=== PATIENT | female | born 1960 | race Caucasian/White ===

== ENCOUNTER 2016-11-12 21:02 | Inpatient (IN) | payer OTHER ==
--- NOTE | ~2016-11-12 | HP ---
Unit #: [id number] #: [id number] Patient: PATRICIO HURD [id number] [address] [place], [place] [address] [id number] MR#: [id number] NAME: PATRICIO HURD. ROOM: 317 Age: 55 Sex: F Admission Date: 11/13/2016 : 1960 Attending Physician: Jie Pelletier M.D. Primary Care Physician: Del Simpson M.D. HISTORY AND PHYSICAL HISTORY OF PRESENT ILLNESS This is a 55-year-old white female with history of multiple sclerosis, hypertension, chronic back pain, nicotine abuse, who came to the emergency room with chest pain. According to the patient, she woke up yesterday morning without any chest pain and then through the morning she started having mid sternal pain that radiated once up to the left side of her neck. She said it was waxing and waning throughout the morning and in the afternoon she had some slight shortness of breath and some nausea. She denied any fever or chills. Has occasional cough. She had no diaphoresis, palpitations or dizziness. She says for two or three days she has been just feeling real fatigued without any specific associated symptoms. In the emergency room, the patient's blood pressure was 155/96, heart rate 94, respirations 18, temperature 98.6, O2 saturation was 100% on room air. Her initial cardiac enzymes troponin was less than 0.05 and later was 0.30 with the %MB 4.4. Her EKG shows normal sinus rhythm with left atrial enlargement. Left axis deviation. Nothing acute. Patient was given aspirin 325 and nitroglycerin paste. The patient has been admitted for further evaluation and management. According to the patient, in the she had a heart catheterization after she was being worked up for some type of chest pain and, according to the patient, was normal. PAST MEDICAL HISTORY 1. History of multiple sclerosis. Follows at [facility]. 2. Hypertension. 3. Chronic back pain. 4. Nicotine abuse. 5. Cardiac catheterization back in the , told it was normal. PAST SURGICAL HISTORY 1. Back surgery x3. 2. Bilateral knee scopes. 3. Bladder repair. 4. Two breast biopsies which were benign. 5. D and C. 6. Tonsillectomy. HOME MEDICATIONS 1. Lasix, dosage unavailable, daily. 2. Baclofen 20 mg p.o. q.i.d. 3. Trazodone 150 mg p.o. h.s. Unit #: [id number] #: [id number] Patient: PATRICIO HURD ALLERGIES Sulfonamides. SOCIAL HISTORY The patient lives with her daughter. She is trying to get disability for her multiple sclerosis. She is fairly inactive. She smokes about one-half pack per day, has been smoking about 15 years. No alcohol or illicit drug abuse. FAMILY HISTORY Mother from brain cancer. Father from complications of COPD but he had a defibrillator and at the age of 76. Her siblings are in general well health. REVIEW OF SYSTEMS CONSTITUTIONAL: Denies fever or chills. HEENT: No vision or hearing changes. No lymphadenopathy, thyromegaly, or difficulty swallowing. CARDIOVASCULAR: Chest pain present. Denies palpitations. Denies increased lower extremity edema. PULMONARY: Slight shortness of breath with the chest pain. Denies paroxysmal nocturnal dyspnea or orthopnea. GASTROINTESTINAL: Some nausea but denies vomiting, diarrhea, or abdominal pain. NEUROLOGIC: No focal weakness. PHYSICAL EXAMINATION VITAL SIGNS: Blood pressure 112/57. On admission, patient's blood pressure was 155/96. Respirations 16, heart rate 65, afebrile, O2 saturations 98% on room air. GENERAL: On exam, Ms. Hurd is a 55-year-old white female in no acute respiratory distress. She is awake, alert, and oriented. NECK: Trachea midline. No thyromegaly, lymphadenopathy. Normal carotid upstrokes. No jugular venous distention. HEART: S1, S2. Regular rate and rhythm. No clicks, murmurs, or rubs. LUNGS: Diminished with scattered wheezes in upper airways. ABDOMEN: Slightly obese, soft, nontender. Positive bowel sounds are present. No hepatosplenomegaly. EXTREMITIES: Pedal pulses are palpable. No pedal edema. DIAGNOSTIC STUDIES LABORATORY: Glucose 95, BUN 10, creatinine 0.6, EGFR 101.2, sodium 136, potassium 3.5, chloride 101, CO2 is 24, calcium 9.7, total protein 7.6, albumin 4.3, total bilirubin 0.3, AST 20, ALT 19, alkaline phosphatase 113. WBC 9.9, hemoglobin 14.4, hematocrit 44.8, platelets 387. Initial cardiac enzymes CKMB 1.7, troponin less than 0.05. Repeat cardiac enzymes CK total 61, MB 27, %MB 4.4, troponin 0.30. Repeat troponin this morning 0.27. INR 1.0. IMAGING: Chest x-ray preliminary report no active disease. CARDIOVASCULAR: EKG shows normal sinus rhythm with ventricular rate 87 beats per minute, left atrial abnormality, left axis deviation, poor R-wave progression. IMPRESSION 1. Chest pain, acute coronary syndrome. Unit #: [id number] #: [id number] Patient: PATRICIO HURD 2. Hypertension. 3. Probable chronic obstructive pulmonary disease, acute bronchitis. 4. Chronic back pain. 5. Multiple sclerosis. 6. Nicotine abuse. PLAN 1. Patient's cardiac enzymes and troponin are elevated along with the MB indicating acute coronary syndrome in addition to her symptoms. 2. Will schedule the patient for a heart catheterization for Tuesday. In the meantime, will treat her bronchitis with albuterol inhaler two puffs b.i.d. 3. Will obtain fasting lipid profile and TSH and evaluate. 4. In the meantime, will put her on Lipitor 80 mg p.o. daily and therapeutic doses of Lovenox 1 mg/kg subcu b.i.d. and add low-dose beta gloria metoprolol 25 mg p.o. b.i.d. 5. Patient will have a 2D echo to evaluate LV function and valves. 6. On exam, there is no signs or symptoms of acute congestive heart failure. Continue to monitor labs, especially BUN, creatinine and electrolytes. 7. Discussed with the patient the heart catheterization including the risks and benefits including risk of bleeding, myocardial infarction, stroke and even . Patient verbalizes understanding and agrees to proceed. 8. Encouraged patient to completely quit smoking. Smoking cessation information provided to patient. 9. Further recommendations pending further testing. Dictated by Niecy Wells A.P.R.N. for Gilda Ronquillo/taco TD: 11/13/2016 12:49 JOB #: [id number] HISTORY AND PHYSICAL Page 1 of 1 X Niecy Wells APRN X HISTORY AND PHYSICAL
--- NOTE | ~2016-11-12 | DS ---
Unit #: [id number] #: [id number] Patient: PATRICIO HERNANDEZ [id number] [address] [place], [place] [address] [id number] I MR#: [id number] NAME: PATRICIO HERNANDEZ. ROOM: 317 Age: 55 Sex: F Admission Date: 11/13/2016 : 1960 Discharge Date: 11/15/2016 Attending Physician: Jie Pelletier M.D. Primary Care Physician: Del Simpson M.D. DISCHARGE SUMMARY DISCHARGE DIAGNOSES 1. Suspected acute coronary syndrome with indeterminate troponin and chest pain. 2. Status post left cardiac catheterization on 11/15/2016, revealed normal coronaries. Normal ejection fraction. Medical management. 3. Two-dimensional echocardiogram with normal ejection fraction. Final operative report pending. 4. Hypertension. 5. Hyperlipidemia. 6. Multiple sclerosis. 7. Chronic back pain. 8. Active tobacco abuse. 9. Probable chronic obstructive pulmonary disease with acute bronchitis. DISCHARGE MEDICATIONS 1. Albuterol two puffs inhalation b.i.d. p.r.n. wheezing. 2. Trazodone 150 mg p.o. at bedtime. 3. Toprol tartrate 12.5 mg p.o. b.i.d. 4. Lipitor 40 mg p.o. at nighttime. 5. Aspirin 81 mg p.o. daily. 6. Baclofen 20 mg p.o. q.i.d. HOSPITAL COURSE This is a 55-year-old white female, new to our group, with a past medical history of hypertension, multiple sclerosis, chronic back pain and nicotine abuse. She came to the emergency department on 11/13/2016 with complaints of chest pain. Please see details in the history and physical. Associated symptoms included shortness of breath and some nausea. Initial troponin was negative, but subsequently peaked at 0.30. EKG revealed sinus rhythm with left atrial enlargement and a left axis deviation, but there were no acute findings. She was started on full-dose aspirin and topical nitrates. She was admitted for further evaluation and management. Her cardiac enzymes were trended. She ruled out for a myocardial infarction due to indeterminate levels. She was scheduled for a cardiac catheterization. During her hospital course she did have some wheezing and congestion. She was started on an albuterol inhaler and was advised to quit smoking. Fasting lipid profile and TSH levels were obtained. TSH level was normal. Lipid profile was mildly abnormal with an LDL at 113 and HDL 42. She was taken for cardiac catheterization on 11/15/[address] Espinal. Coronary angiography revealed normal coronaries. Ejection fraction was normal. Final operative report is pending, but there were no acute findings. The patient did well during the procedure and was transferred Unit #: [id number] #: [id number] Patient: PATRICIO HERNANDEZ to telemetry for further observation. Her right wrist was soft without hematoma. Labs were stable. Telemetry revealed no sustained arrhythmias. Once vascular checks are completed and she ambulates, she can be discharged home later today. She has been instructed to quit smoking and to follow up with her primary care provider due to suspected chronic bronchitis. She has been advised for spirometry testing and will likely need maintenance inhalers. For now she will be sent home with an albuterol inhaler as needed. She was started on a statin due to mild hyperlipidemia. She had some elevated blood pressure readings, with systolic being in the 150s to 160s. She was started on a low-dose beta gloria. She is stable and will be discharged home later today, as long as catheterization is stable. DIAGNOSTIC DATA LABORATORY: White blood cell count 8.3, hemoglobin 13.1, hematocrit 41.0, platelets 320, sodium 141, potassium 4.8, chloride 105, CO2 30, BUN 19, creatinine 0.7, glucose 94, AST 20, ALT 19, alkaline phosphatase 113. Peak troponin 0.3, 0.27, 0.26 and 0.27. Total cholesterol 185, triglycerides 151, LDL 113, HDL 42. TSH 1.25. CARDIOVASCULAR: Electrocardiogram revealed sinus bradycardia with a ventricular rate of 55 beats per minute. No acute ST or T wave changes. DISPOSITION The patient will be discharged home today after vascular checks. FOLLOWUP 1. She is instructed to follow up with primary care in one to two weeks. 2. Follow up with Dr. Pelletier on 01/18/2017 at 11:15 a.m. 3. The patient has been advised to follow for outpatient spirometry. She may need scheduled inhalers based on findings. DISCHARGE INSTRUCTIONS 1. Post catheterization instructions provided. 2. She has been advised to refrain from tobacco abuse. Dictated by... Faye B. Minor, WELLNESS NURSE RN for Gilda Zapien/michelle TD: 11/25/2016 09:52 JOB #: [id number] DISCHARGE SUMMARY Page 1 of 1 X X DISCHARGE SUMMARY
--- NOTE | ~2016-11-12 | EKG ---
PATIENT: PATRICIO HERNANDEZ UNIT #: [id number] Ventricular Rate: 55 BPM Atrial Rate: 55 BPM P-R Interval: 176 ms QRS Duration: 96 ms Q-T Interval: 444 ms QTC Calculation(Bezet): 424 ms P [place]: 78 degrees Calculated R [place]: -33 degrees Calculated T [place]: 24 degrees Diagnosis Line: Sinus bradycardia Diagnosis Line: Left axis deviation Diagnosis Line: Abnormal ECG Diagnosis Line: When compared with ECG of 13-NOV-2016 08:22, Diagnosis Line: No significant change was found Diagnosis Line: Confirmed by LISA ESCOBAR MD ([id number]) on Diagnosis Line: 11/14/2016 3:55:34 PM INTERPRETING MD: ANGELO
--- NOTE | ~2016-11-12 | EKG ---
PATIENT: PATRICIO HERNANDEZ UNIT #: [id number] Ventricular Rate: 87 BPM Atrial Rate: 87 BPM P-R Interval: 186 ms QRS Duration: 90 ms Q-T Interval: 376 ms QTC Calculation(Bezet): 452 ms P [place]: 65 degrees Calculated R [place]: -59 degrees Calculated T [place]: 43 degrees Diagnosis Line: Normal sinus rhythm Diagnosis Line: Left axis deviation Diagnosis Line: Pulmonary disease pattern Diagnosis Line: Abnormal ECG Diagnosis Line: No previous ECGs available Diagnosis Line: Confirmed by IRIS STANLEY MD ([id number]) on 11/16/2016 Diagnosis Line: 5:25:10 AM INTERPRETING MD: JADEN CRAIN
--- NOTE | ~2016-11-12 | EKG ---
PATIENT: PATRICIO HERNANDEZ UNIT #: [id number] Ventricular Rate: 64 BPM Atrial Rate: 64 BPM P-R Interval: 206 ms QRS Duration: 94 ms Q-T Interval: 412 ms QTC Calculation(Bezet): 425 ms P [place]: 72 degrees Calculated R [place]: -25 degrees Calculated T [place]: 31 degrees Diagnosis Line: Normal sinus rhythm Diagnosis Line: Normal ECG Diagnosis Line: No previous ECGs available Diagnosis Line: Confirmed by IRIS STANLEY MD ([id number]) on 11/14/2016 Diagnosis Line: 7:13:27 AM INTERPRETING MD: JADEN CRAIN
--- NOTE | ~2016-11-12 | EKG ---
PATIENT: PATRICIO HERNANDEZ UNIT #: [id number] Ventricular Rate: 55 BPM Atrial Rate: 55 BPM P-R Interval: 192 ms QRS Duration: 94 ms Q-T Interval: 426 ms QTC Calculation(Bezet): 407 ms P [place]: 70 degrees Calculated R [place]: -7 degrees Calculated T [place]: 45 degrees Diagnosis Line: Sinus bradycardia with sinus arrhythmia Diagnosis Line: Otherwise normal ECG Diagnosis Line: When compared with ECG of 14-NOV-2016 06:51, Diagnosis Line: No significant change was found Diagnosis Line: Confirmed by IRIS STANLEY MD ([id number]) on 11/16/2016 Diagnosis Line: 5:35:03 AM INTERPRETING MD: JADEN CRAIN
--- NOTE | ~2016-11-12 | CR72 ---
[facility] A Service of [facility] & [facility] RADIOLOGY TEXT RESULTS PATIENT: PATRICIO HERNANDEZ LOCATION: [facility] 317-01 : 56 UNIT #: [id number] AGE: [address]: Jie Pelletier MD SEX: F ORDER DR: [id number] [facility] [address] [facility]. [place], [place] [address] [id number] I MR#: [id number] Acc #: [id number] NAME: PATRICIO HERNANDEZ. : 1960 SEX: F STUDY DATE/TIME: 11/12/2016 19:04 UNIT: [address] ROOM: [facility] STUDY DESCRIPTION: CR Chest Single View Portable Attending Physician: Jie Pelletier M.D. Ordering Physician: Ed Denny Gautam M.D. Primary Care Physician: Del Simpson M.D. MEDICAL IMAGING REPORT This report is preliminary unless electronic signature is present EXAM AP portable chest, 11/12/2016. HISTORY 55-year-old female in the ED complaining of chest pain, cough and congestion beginning earlier today. TECHNIQUE AP portable upright chest x-ray. FINDINGS The examination is negative. Heart size and pulmonary vascularity are normal. The lungs are expanded and clear. No visible pulmonary infiltrate or pleural effusion. No change since 04/21/2011. IMPRESSION Negative chest. Dictated by... Arnoldo Perea M.D. THIS IS AN ELECTRONICALLY VERIFIED REPORT Arnoldo Perea M.D. at 11/15/2016 5:59 AM ANNA/selene TD: 11/13/2016 13:24 JOB #: [id number] MEDICAL IMAGING REPORT Page 1 of 1 COPY
[2016-11-12 19:25] LABS: BASOPHIL% 0.2 % (0-2.5); EOSINOPHIL# 0.3 X10e3 (0-0.7); EOSINOPHIL% 2.6 % (0.0-7.0); HEMATOCRIT 44.8 % (35.0-45.0); HEMOGLOBIN 14.4 gm/dL (12.0-16.0); LYMPHOCYTE# 3.1 X10e3 (1.0-3.5); LYMPHOCYTE% 31.7 % (17.0-45.0); MEAN CELL VOLUME 84.4 FL (83-96); MEAN CORPUSCULAR HEMOGLOBIN 27.2 PG (28-34); MEAN CORPUSCULAR HGB CONC 32.2 g/dL (30-36); MEAN PLATELET VOLUME 8.7 FL (6.5-11.5); MONOCYTE# 0.7 X10e3 (0-1.0); MONOCYTE% 7.2 % (3.0-12.0); NEUTROPHIL# 5.8 X10e3 (1.5-7.1); NEUTROPHIL% 58.3 % (40-75); PLATELET COUNT 387 X10e3 (140-420); RED BLOOD COUNT 5.31 X10e (3.90-5.30); RED CELL DISTRIBUTION WIDTH 14.5 % (11.0-15.5); WHITE BLOOD COUNT 9.9 X10e3 (4.0-10.5)
[2016-11-12 19:26] LABS: DIFF IND NO
[2016-11-12 19:35] LABS: PARTIAL THROMBOPLASTIN TIME 29.7 SECONDS (23.5-31.3)
[2016-11-12 19:48] LABS: ALBUMIN SERUM 4.3 g/dL (3.5-5.0); ALKALINE PHOSPHATASE 113 U/L (32-92); ALT (SGPT) 19 U/L (10-40); AST (SGOT) 20 U/L (10-42); BILIRUBIN,TOTAL 0.3 mg/dL (0.2-2.0); BLOOD UREA NITROGEN 10 mg/dL (9-23); BUN/CREATININE RATIO 16.66; CALCIUM SERUM 9.7 mg/dL (8.4-10.2); CARBON DIOXIDE 24 mmol/L (22-31); CHLORIDE 101 mmol/L (100-111); CREATININE SERUM 0.6 mg/dL (0.6-1.4); GLOM FILT RATE Estimated 101.2 mL/min (>60); GLUCOSE FASTING 95 mg/dL (70-110); POTASSIUM 3.5 mmol/L (3.5-5.1); PROTEIN TOTAL SERUM 7.6 g/dL (6.0-8.3); SODIUM 136 mmol/L (135-145)
[2016-11-12 19:52] LABS: BILIRUBIN, DIRECT <0.1 mg/dL (0.0-0.2); BILIRUBIN,INDIRECT 0.2 mg/dL (0.0-0.9)
[2016-11-12 20:35] LABS: POC - CKMB 1.7 ng/mL (0.0-7.9); POC - TROPONIN <0.05 ng/mL (<=0.05)
[~2016-11-12 21:02] MED LIST: LEVAQUIN250 MG PO; LEVAQUIN750 MG PO
[2016-11-12] MEDS ORDERED: LASIX PO (21:34)
[2016-11-12] MEDS ORDERED: TRAZODONE HCL150 MG PO (21:35)
[2016-11-12] MEDS ORDERED: BACLOFEN20 M1 PO (21:35)
[2016-11-12 22:03] LABS: CHOLESTEROL 234 mg/dL (0-200); HDL CHOLESTEROL 53 mg/dL (35-95); LDL/HDL RATIO 3 RATIO (0-4); TRIGLYCERIDES 235 mg/dL (10-160)
[2016-11-12 22:04] LABS: LDL CHOLESTEROL 134 mg/dL ([, -130])
[2016-11-12 22:52] LABS: %MB 4.4 % (0.0-4.0); MB 2.7 ng/ml
[2016-11-13 07:39] LABS: CK TOTAL 51 IU/L (26-140)
[2016-11-13 09:58] LABS: CHOLESTEROL 185 mg/dL (0-200); HDL CHOLESTEROL 42 mg/dL (35-95); LDL CHOLESTEROL 113 mg/dL ([, -130]); LDL/HDL RATIO 3 RATIO (0-4); TRIGLYCERIDES 151 mg/dL (10-160)
[2016-11-13 11:03] LABS: CK TOTAL 53 IU/L (26-140)
[2016-11-14 05:18] LABS: BASOPHIL# 0.1 X10e3 (0-0.3); BASOPHIL% 1.1 % (0-2.5); EOSINOPHIL# 0.3 X10e3 (0-0.7); HEMATOCRIT 42.9 % (35.0-45.0); HEMOGLOBIN 13.7 gm/dL (12.0-16.0); LYMPHOCYTE# 3.1 X10e3 (1.0-3.5); LYMPHOCYTE% 34.8 % (17.0-45.0); MEAN CELL VOLUME 84.9 FL (83-96); MEAN CORPUSCULAR HEMOGLOBIN 27.1 PG (28-34); MEAN CORPUSCULAR HGB CONC 31.9 g/dL (30-36); MEAN PLATELET VOLUME 8.6 FL (6.5-11.5); MONOCYTE# 0.9 X10e3 (0-1.0); MONOCYTE% 9.9 % (3.0-12.0); NEUTROPHIL# 4.4 X10e3 (1.5-7.1); NEUTROPHIL% 50.2 % (40-75); PLATELET COUNT 345 X10e3 (140-420); RED BLOOD COUNT 5.05 X10e (3.90-5.30); RED CELL DISTRIBUTION WIDTH 14.7 % (11.0-15.5); WHITE BLOOD COUNT 8.8 X10e3 (4.0-10.5)
[2016-11-14 05:24] LABS: DIFF IND NO
[2016-11-14 05:52] LABS: CREATININE SERUM 0.6 mg/dL (0.6-1.4); GLOM FILT RATE Estimated 101.2 mL/min (>60); POTASSIUM 4.4 mmol/L (3.5-5.1)
[2016-11-15 06:23] LABS: HEMOGLOBIN 13.1 gm/dL (12.0-16.0); MEAN CORPUSCULAR HEMOGLOBIN 27.2 PG (28-34); MEAN PLATELET VOLUME 8.5 FL (6.5-11.5); RED BLOOD COUNT 4.82 X10e (3.90-5.30); RED CELL DISTRIBUTION WIDTH 14.4 % (11.0-15.5); WHITE BLOOD COUNT 8.3 X10e3 (4.0-10.5)
[2016-11-15 06:43] LABS: PARTIAL THROMBOPLASTIN TIME 31.5 SECONDS (23.5-31.3); PROTHROMBIN TIME (PATIENT) 10.4 SECONDS (9.6-11.5)
[2016-11-15 07:06] LABS: BUN/CREATININE RATIO 27.14; CALCIUM SERUM 9.4 mg/dL (8.4-10.2); CREATININE SERUM 0.7 mg/dL (0.6-1.4); GLOM FILT RATE Estimated 96.2 mL/min (>60); POTASSIUM 4.8 mmol/L (3.5-5.1)
[2016-11-15] MEDS ORDERED: LIPITOR40 MG PO (14:52)
[2016-11-15] MEDS ORDERED: LOPRESSOR PO (14:52)
[2016-11-15] MEDS ORDERED: PROAIR HFA8.5 GM INH (14:52)
[2016-11-15] MEDS ORDERED: ASPIRIN81 M2 PO (14:53)
== END 2016-11-15 18:31 | disposition home or self-care (01) | DRG 287 ==
LOC: CED 21:02 → CEDOF 21:30 → C3A PCU 11-13 08:39
PROVIDERS: Emergency Medicine; Internal Medicine Cardiovascular Disease
PROC: B24BYZZ Ultrasonography of Heart with Aorta using Other Contrast (ICD-10-PCS; principal; 2016-11-13)
PROC: 4A023N7 Measurement of Cardiac Sampling and Pressure, Left Heart, Percutaneous Approach (ICD-10-PCS; 2016-11-15)
PROC: B215YZZ Fluoroscopy of Left Heart using Other Contrast (ICD-10-PCS; 2016-11-15)
PROC: B211YZZ Fluoroscopy of Multiple Coronary Arteries using Other Contrast (ICD-10-PCS; 2016-11-15)
DX: R07.9 Chest pain, unspecified (principal); G35 Multiple sclerosis; I10 Essential (primary) hypertension; J20.9 Acute bronchitis, unspecified; G89.29 Other chronic pain; M54.9 Dorsalgia, unspecified; F17.210 Nicotine dependence, cigarettes, uncomplicated; Z88.2 Allergy status to sulfonamides; Z80.8 Family history of malignant neoplasm of other organs or systems
CPT/HCPCS: 36415; 71010; 80048; 80061; 80076; 82550; 82553; 84443; 84484; 85025; 85027; 85610; 85730; 93005; 93306; 94640; 94664; 94760; 99285; C1769; C1887; C1894; J1644; J1650; J2250; J2405; J3010